=== PATIENT | male | born 1940 | race Caucasian/White ===

== ENCOUNTER 2016-10-09 09:45 | Day surgery (SDC) | payer OTHER, BC ==
[~2016-10-09] VITALS: Ht 177.8 cm; Wt 141.0 kg
[~2016-10-09 09:45] MED LIST: Allegra PO; Bactrim,Septra DS 80 PO; Bystolic PO; CYMBALTA60 MG PO; Coumadin Protocol PO; Coumadin dosing per PO; Cymbalta PO; FENOFIBRATE160 M1 PO; FEXOFENADINE HC60 MG PO; FLOMAX0.4 MG PO; FUROSEMIDE20 MG PO; Feosol PO; Glucophage PO; HYZAAR 50-121 TABLET PO; Hyzaar 50-12.5 PO; INVOKANA300 MG PO; JANUVIA100 MG PO; Januvia PO; LANSOPRAZOLE30 MG PO; LEVEMIR FL100 UNITS/ SC; LO-DOSE ASPIRIN81 M2 PO; Lasix PO; METFORMIN HCL1000 MG PO; METOPROLOL TART25 MG PO; Micro-K,K-Tab,K-Dur, PO; NITROSTAT0.4 MG SL; OMEGA-3 FISH O1 EAC9 PO; PROAIR HFA8.5 GM IH; Prevacid PO; REPATHA SU140 MG/1 M SC; RHINOCORT ALL8.43 ML BOTH NARES; Senokot S,Pericolace PO; TRAMADOL HCL50 MG PO; TRESIBA FL200 UNIT/1 SC; Tylenol Regular Stre PO; VICTOZA0.6 MG/0.1 SC; Vicodin,Norco 5/325 PO
[2016-10-09 10:50] LABS: POINT-OF-CARE METER ID UU13113696
[2016-10-09 14:35] LABS: POINT-OF-CARE METER ID UU13113819
== END 2016-10-09 18:20 | disposition home or self-care (01) ==
LOC: CATH 09:45
PROVIDERS: Internal Medicine Cardiovascular Disease
DX: I25.10 Atherosclerotic heart disease of native coronary artery without angina pectoris (principal); I25.82 Chronic total occlusion of coronary artery; E66.01 Morbid (severe) obesity due to excess calories; Z68.42 Body mass index [BMI] 45.0-49.9, adult; I25.2 Old myocardial infarction; Z95.5 Presence of coronary angioplasty implant and graft; E11.9 Type 2 diabetes mellitus without complications; I10 Essential (primary) hypertension; E78.5 Hyperlipidemia, unspecified; G47.33 Obstructive sleep apnea (adult) (pediatric); R06.02 Shortness of breath; M25.562 Pain in left knee; M25.561 Pain in right knee; J44.9 Chronic obstructive pulmonary disease, unspecified; K21.9 Gastro-esophageal reflux disease without esophagitis; Z85.51 Personal history of malignant neoplasm of bladder; Z96.643 Presence of artificial hip joint, bilateral; Z87.891 Personal history of nicotine dependence; Z82.49 Family history of ischemic heart disease and other diseases of the circulatory system; Z80.3 Family history of malignant neoplasm of breast
CPT/HCPCS: 82948; 85347; C1750; C1769; C1887; J0153; J1644; J2250; J3010; J7050